=== PATIENT | female | born 1985 ===

== ENCOUNTER 2016-09-17 11:27 | Inpatient (IN) | payer MEDICAID, SELFPAY ==
[2016-09-17 12:40] VITALS: BMI 50.0
[2016-09-17 17:43] LABS: BASO % 0.4 % (0.0-2.0); EOS # 0.1 K/uL (0.0-0.7); EOS % 0.6 % (0.0-4.0); HEMATOCRIT 31.4 % (34.0-47.0); LYMPH # 2.1 K/uL (1.0-4.3); LYMPH % 18.8 % (20.0-40.0); MEAN CELL VOLUME 72.6 fl (81.0-99.0); MEAN CORPUSCULAR HEMOGLOBIN 21.8 pg (27.0-31.0); MEAN PLATELET VOLUME 9.7 fl (7.2-11.7); MONO # 0.6 K/uL (0.0-0.8); MONO % 5.3 % (0.0-10.0); NEUT # 8.4 K/uL (1.8-7.0); NEUT % 74.9 % (50.0-75.0); NRBC % 0.4 % (0.0-0.0); RED CELL DISTRIBUTION WIDTH 19.8 % (11.5-14.5); WHITE BLOOD COUNT 11.2 K/uL (4.8-10.8)
[2016-09-18] MEDS ORDERED: Lactated Ringer's 1,000 ML IV SCH (08:30)
--- NOTE | 2016-09-18 09:46 | OBADHP ---
Datetime: 09/18/2016 08:27 FHR - Baseline A Provider: 140 Vital Signs Provider: Reviewed NICHD Variability Prov Fetus A: Moderate 6-25bpm NICHD Accel Fetus A IP Provider: 15X15 NICHD Decel Fetus A IP Provider: None Dilatation, Provider: 2 Effacement, Provider: 70 Station, Provider: -2 Datetime: 09/17/2016 16:04 IP Chief Complaint Other: decreased ELGIN Admit Comment, IP Provider: 30 y/o F at 39 weeks GA, AP 09/24/16 base on LMP presents to OB ED a fter learning to have decreased ELGIN (5.6) when pt went for growth screening today. Denies VB, C TX or LOF. pt reports + movement. denies dyspnea, chest pain, fever, chills or dizziness. 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 social: denies smoking cigarettes, drinking alcohol or using recreational drugs. allergies: NKDA. assessment: 30 y/o F at 39 weeks GA, AP 09/24/16 base on LMP presents to OB ED after learning to have decreased ELGIN (5.6) today. Plan: admit to unit continue heart monitor cbc type and screen regular diet cervidil to be administer at 20:00 tonight. Sultan Haas, PGY1 Addendum: I saw examined patient up presentation. Patient with amniotic fluid index of 5. Patient transferre d to L_D for induction of labor due to oligohydramnios. I discussed with patient results of ultrasoun d and process of induction. All patient questions answered. Plan for cervical ripening agent today. M aternal well-being and well-being reassuring at this time. [place] Extremities - PN: Normal Abdomen - PN: Normal Back - PN: Normal Lungs - PN: Normal Heart - PN: Normal Neurologic - PN: Normal HEENT - PN: Normal General - PN: Normal Gestation - Est Wks by US: 39.0 IP Hx Assessment: The History has been Reviewed and is Current IP Chief Complaint: Other Genitourinary Exam: Normal DTRs - PN: Normal EGA AdmitDate IP: 39.0 IP Adm Impression: Term, intrauterine IP Admit Plan: Observation/Evaluation
[2016-09-18] MEDS: Lactated Ringer's 1,000 ML IV SCH ×2 (10:00→17:32)
[2016-09-18] MEDS ORDERED: Oxytocin 30 units/LR 500ML 30 U/500 ML BAG IV ONE (10:32)
[2016-09-18] MEDS ORDERED: Morphine 1 mg/ml preservative-free Inj(Duramorph) ONE (11:08)
[2016-09-18] MEDS: Oxytocin 30 units/LR 500ML 30 U/500 ML BAG IV SCH ×2 (11:46→17:32)
[2016-09-18] MEDS ORDERED: Oxycodone/Acetaminophen 5/325 mg Tab PO PRN (12:15)
[2016-09-18] MEDS ORDERED: Lidocaine 2% PF (10 ml) Amp ONE (12:20)
[2016-09-18] MEDS: Simethicone 80 mg Chewtab PO SCH ×2 (16:03→22:49)
[2016-09-18] MEDS: Oxycodone/Acetaminophen 5/325 mg Tab PO PRN (22:49)
--- NOTE | 2016-09-18 23:20 | OP ---
PROCEDURE DATE: 09/18/2016 PREOPERATIVE DIAGNOSIS: Intrauterine at 39 plus weeks, oligohydramnios, primary section via maternal request. POSTOPERATIVE DIAGNOSIS: Intrauterine at 39 plus weeks, oligohydramnios, primary section via maternal request. OPERATION PERFORMED: Primary low flap transverse section by Pfannenstiel skin incision. SURGEON: Dr. Mike Foster. SOCIOLOGY INSTRUCTOR: Dr. Rk Rainey. TYPE OF ANESTHESIA: Epidural. ANESTHESIA ADMINISTERED BY: Dr. Bahena. FINDINGS: The operative findings were baby girl, vertex presentation, Apgars 9 and 9, weighing 3900 grams, 8 pounds 10 ounces. Normal uterus, tubes, and ovaries were identified. Dr. Rainey was the chemistry research assistant. The procedure was instrumental under the care of the patient. He helped deliver the baby, obtain hemostasis and was helpful in closing the patient. The procedure has not been possible without his assistance. IV FLUID INTAKE: The patient received approximately 1200 mL of D5 LR intraoperatively. ESTIMATED BLOOD LOSS: 800 mL. URINE OUTPUT: Guidry catheter put out approximately 150 mL of clear urine. DESCRIPTION OF PROCEDURE: After informed consent was obtained, the patient was taken to the operating room, where she was prepped and draped in a normal sterile fashion with a leftward tilt. A Pfannenstiel skin incision was then made with scalpel and carried down to the underlying layer of fascia. The fascia was nicked in the midline. The fascial incision was then extended laterally with the Curved Devine scissors. The superior aspect of the fascial incision was then grasped with Ju clamps, elevated up, and the rectus muscles were dissected off using both sharp and blunt dissection. Attention was then turned to the inferior aspect of the fascial incision with similar fashion, was grasped with Ju clamps, elevated up, and the rectus muscles were dissected off using both sharp and blunt dissection. The rectus muscles were then in the midline. The peritoneum identified and entered sharply with the Metzenbaum scissors. Peritoneal incision was then extended superiorly and inferiorly with good visualization of the bladder. The bladder blade was then inserted. The vesicouterine peritoneum was identified and entered sharply with the Metzenbaum scissors. The incision was extended laterally and the bladder flap was created digitally. The bladder blade was then readjusted and a low transverse incision was then made with the scalpel. The incision was then distended laterally with the bandage scissors. The 's head was then delivered atraumatically. The nose and mouth were suctioned with DeLee suction trap. The cord was clamped and cut. The was handed out to awaiting pediatricians. The placenta was removed manually. The uterus was exteriorized and cleared of all clots and debris. The uterine incision was then repaired with 0-Vicryl in a running locked fashion. Second layer of the same suture was used to obtain excellent hemostasis. The abdomen was then copiously irrigated. The irrigant was removed with a suction device. The gutters were cleared of all clots and debris. The incision was reexamined, hemostasis was noted. The peritoneum was then closed with 2-0 Vicryl in a running fashion. The muscle was reapproximated with 0-Vicryl in an interrupted fashion. The fascia was closed with 0-Vicryl in a running fashion. The skin was closed with farzad. All sponge, lap, and instruments counts were correct x2, and the patient was taken to the recovery room in awake and stable condition. Mike Foster MD
[2016-09-19 00:32] VITALS: BP 106/67; PULSE 83; RESP 18; TEMP 99.3; O2SAT 95
[2016-09-19] MEDS: Simethicone 80 mg Chewtab PO SCH ×4 (06:22→21:47)
[2016-09-19] MEDS: Oxycodone/Acetaminophen 5/325 mg Tab PO PRN (06:51)
[2016-09-19 07:52] LABS: BASO % 0.2 % (0.0-2.0); EOS % 0.2 % (0.0-4.0); HEMATOCRIT 28.7 % (34.0-47.0); LYMPH # 2.5 K/uL (1.0-4.3); LYMPH % 17.2 % (20.0-40.0); MEAN CELL VOLUME 72.1 fl (81.0-99.0); MEAN CORPUSCULAR HEMOGLOBIN 22.1 pg (27.0-31.0); MEAN CORPUSCULAR HGB CONC 30.6 g/dL (33.0-37.0); MEAN PLATELET VOLUME 9.6 fl (7.2-11.7); MONO # 1.1 K/uL (0.0-0.8); MONO % 7.8 % (0.0-10.0); NEUT # 10.7 K/uL (1.8-7.0); NEUT % 74.6 % (50.0-75.0); NRBC % 0.1 % (0.0-0.0); RED CELL DISTRIBUTION WIDTH 21.2 % (11.5-14.5); WHITE BLOOD COUNT 14.3 K/uL (4.8-10.8)
--- NOTE | 2016-09-19 13:48 | OBPPN ---
Datetime: 09/19/2016 07:29 PP Pain Prov: Within normal limits PP Nausea Prov: Denies PP Flatus Prov: No PP BM Prov: No PP Heart Prov: Normal PP Lungs Prov: Normal PP Abdomen/Uterus Prov: Normal PP Lochia Prov: Normal PP Extremities Prov: Normal PP Progress Prov: Normal PP Impression Prov: Normal progression PP Plan Prov: Continue present management PP Progress Note Prov: This is a 30 y/o now who had a on 09/18/16 due to arrest of di lation. Pt evaluated on bedside. Pt feeling well with uneventful night. Pt tolerating PO, remained a febrile and with lochia less than menses. Pain is tolerable with medications. Pt currently breast and bottle feeding. Pt has NOT try to ambulate yet. Pt denies H/A, CP, SOB, dysuria, passing gasses and bowel movement. O: VS WNL. PE: Gen: A_O, resting comfortable on bed, NAD. Lungs: CTAB, No W/R/R. CV: RRR, S1 and S2 present. ABD: BS +, firm fundus below umbilicus, incision is clean, dry and intact with no erythema, indura trion or edema. EXT: non-tender calves. A_P: 30 y/o F POD 1, S/P . pt feeling well. Will continue post-C section care. Pt encouraged to breast feed and ambulate. Jono Bush PGY-1. OB Hospitalist note: This pt was seen and examined by me. Agree with above note. ELENA MAO PP Procedures: None
[2016-09-19] MEDS: Docusate-Senna 50 mg-8.6 mg Tab PO SCH (21:47)
[2016-09-20] MEDS: Oxycodone/Acetaminophen 5/325 mg Tab PO PRN ×3 (08:24→21:43)
[2016-09-20] MEDS: Simethicone 80 mg Chewtab PO SCH ×3 (09:59→21:40)
--- NOTE | 2016-09-20 10:40 | OBPPN ---
Datetime: 09/20/2016 07:50 PP Pain Prov: Within normal limits PP Nausea Prov: Denies PP Flatus Prov: Yes PP BM Prov: No PP Breasts Prov: Normal PP Heart Prov: Normal PP Lungs Prov: Normal PP Abdomen/Uterus Prov: Normal PP Lochia Prov: Normal PP Vulva/Perineum Prov: Normal PP CVA Tenderness Prov: Normal PP Extremities Prov: Normal PP C/S Incision Prov: Normal PP Progress Prov: Normal PP Comments Phys Exam Prov: not acute distress Lungs CTA B/L RRR, S1S2 Abd: Soft, uterus umb level, not distended. BS+. Incision clean and dry No calf tenderness Alert and oriented PP Impression Prov: Normal progression PP Plan Prov: Continue present management PP Progress Note Prov: S: Patient seen at bedside on POD2 in not acute distress. Denies CP, SOB, randy f pain, palpitations, dizziness, nausea or vomiting. Lochia is less than menses. Pain controlled with pain meds. Tolerating PO diet well. + Flatus no BM yet. Breast and bottle feeding. PE: See above A_P: 30 y/o in POD2 uncomplicated -C/w current plan -Motrin and percocet PRN for pain -Reg diet -Encourage ambulation and -Anticipated DC 09/21/16 Lior Kerr PGY2 The patient was seen with resident I agree with the notes Anticipate discharge in a.m. IP PP Procedures: None Vital Signs Provider PP: Reviewed; Within Normal Limits
[2016-09-20] MEDS: Docusate-Senna 50 mg-8.6 mg Tab PO SCH (21:45)
[2016-09-21] MEDS: Simethicone 80 mg Chewtab PO SCH ×2 (05:02→09:45)
--- NOTE | 2016-09-21 12:58 | OBDCSUM ---
Datetime: 09/21/2016 07:30 Discharged to, Provider: Home Follow up at, Provider: [facility] Disch Instr Activity: May be up to bathroom; May be up for meals; May Shower Disch Instr Diet: Regular Discharge Instructions, Provider: Specific instructions as noted Discharge Diagnosis, Provider: Term Delivered Discharge Time: 09/21/2016 10:55 Follow up in weeks, Provider: 1 WEEK-10days Discharge Instruct Comment, Prov: postop Contraception discussed, Prov: Yes Disch Activity Restrictions: No exercising; No lifting; No driving; No sexual activity; Nothing in v agina - Silt, tampons, douche Discharge Comment, Provider: Encourage Ibuprofen 600 mg 1 tablet every 6 hours as neded for moderate pain Percocet 5/325mg 1 tab every 6 hours as needed if severe pain feosol 325 mg two times daily Senokot S 50/8.6 two time daily Follow up at your clinic in 1 week. Contraception after Delivery: Undecided
--- NOTE | 2016-09-21 13:01 | OBPPN ---
Datetime: 09/21/2016 07:11 PP Pain Prov: Within normal limits PP Nausea Prov: Denies PP Flatus Prov: Yes PP BM Prov: No PP Breasts Prov: Normal PP Heart Prov: Normal PP Lungs Prov: Normal PP Abdomen/Uterus Prov: Normal PP Vulva/Perineum Prov: Normal PP CVA Tenderness Prov: Normal PP Extremities Prov: Normal PP C/S Incision Prov: Normal PP Comments Phys Exam Prov: not acute distress Lungs CTA B/L RRR, S1S2 Abd: Soft, uterus umb level, not distended. BS+. Incision clean and dry, farzad intact. No calf tenderness Alert and oriented PP Impression Prov: Normal progression PP Plan Prov: Discharge PP Progress Note Prov: 30 yo now seen at bedside on POD3 in not acute distress. Denies CP, SOB, calf pain, palpitations, dizziness, nausea or vomiting. Lochia is less than menses. Pain controlled with pain meds. Tolerating PO diet well. Pt reports + Flatus no BM yet. Breast and bottle feeding. PE: See above A_P: 30 y/o in POD3 uncomplicated -Motrin and percocet PRN for pain -Reg diet -Encourage ambulation and -Discharge home today -Follow up in clinic in 1 week. Sultan Haas, PGY-1 [facility] ADDENDUM: pt seen _ examined by me. agree with above assessment and plan. - benefits of reinforced. -wound hygiene reinforced -Fe supplem reviewed. IP PP Procedures: None Vital Signs Provider PP: Reviewed
--- NOTE | 2016-09-30 13:41 | OBDS ---
DELIVERY PERSONNEL Delivery Doctor: Renny Foster MD Tree Doctor: Rupal Handley RN Anesthesiologist: Rito Bahena MD MATERNAL INFORMATION Delivery Anesthesia: Spinal Medications in Delivery: pitocin 30 units in 500 ml lr Estimated Blood Loss (ml): 800 Placenta Cultured: No Maternal Complications: None Provider Comments: see operative report LABOR SUMMARY EDC: 09/24/2016 00:00 No. Babies in Womb: 1 Attempted: No Labor Anesthesia: None LABOR INFORMATION Reason for Induction: Oligohydramnios Cervical Ripening Agents: Cervidil Oxytocin: N/A Group B Beta Strep: Negative Steroids Given: None Reason Steroids Not Administered: Not Applicable MEMBRANES Membranes Rupture Method: Artificial Rupture of Membranes: 09/18/2016 11:44 Length of Rupture (hrs): 0.02 Amniotic Fluid Color: Clear Amniotic Fluid Amount: Moderate Amniotic Fluid Odor: Normal STAGES OF LABOR Stage 3 hrs: 0 Stage 3 min: 0 CSECTION DELIVERY Primary Indication: Other Other Primary Indication: Elective CSection Urgency: Elective CSection Incidence: Primary Labor: No Labor Elective: Elective CSection Incision: Lower Uterine Transverse BABY A INFORMATION Infant Delivery Date/Time: 09/18/2016 11:45 Method of Delivery: Born in Route : No : N/A Forceps: N/A Vacuum Extraction: N/A Shoulder Dystocia : No SHOULDER DYSTOCIA BABY A Infant Delivery Date/Time: 09/18/2016 11:45 PRESENTATION/POSITION BABY A Presentation: Cephalic Cephalic Presentation: Vertex Vertex Position: Left Occipital Posterior Breech Presentation: N/A PLACENTA INFORMATION BABY A Placenta Delivery Time : 09/18/2016 11:45 Placenta Method of Delivery: Manual Removal Placenta Status: Delivered SCORES BABY A Heart Rate 1 min: >100 bpm Resp Effort 1 min: Good Cry Reflex Irritability 1 min: Cough or Sneeze or Pulls Away Muscle Tone 1 min: Active Motion Color 1 min: Body [place], Extremities Blue SCORE 1 MIN: 9 Heart Rate 5 min: >100 bpm Resp Effort 5 min: Good Cry Reflex Irritability 5 min: Cough or Sneeze or Pulls Away Muscle Tone 5 min: Active Motion Color 5 min: Body [place], Extremities Blue SCORE 5 MIN: 9 INFORMATION BABY A Gestational Age at Delivery: 39.0 Gestational Status: Term Infant Outcome : Liveborn Infant Condition : Stable Infant Sex: Female WEIGHT/LENGTH BABY A Birthweight (gms): 3900 Weight (lb): 8 Infant Weight (oz): 10 CORD INFORMATION BABY A No. Cord Vessels: 3 Nuchal Cord : Around Neck x1, Loose Cord Blood Taken: Yes Infant Suction: Mouth; Nose ASSESSMENT BABY A Infant Complications: None Physical Findings at Delivery: Within Normal Limits Infant Respirations: Appears Normal Construction Driller/ALS Called : No Infant Care By: Dr Lalo thompson Transferred To: [facility]
--- NOTE | 2016-10-24 08:10 | OBHP ---
Datetime: 09/18/2016 08:27 FHR - Baseline A Provider: 140 Vital Signs Provider: Reviewed NICHD Variability Prov Fetus A: Moderate 6-25bpm NICHD Accel Fetus A IP Provider: 15X15 NICHD Decel Fetus A IP Provider: None Dilatation, Provider: 2 Effacement, Provider: 70 Station, Provider: -2 Datetime: 09/17/2016 16:04 IP Adm Impression: Term, intrauterine IP Chief Complaint Other: decreased ELGIN IP Admit Plan: Observation/Evaluation Admit Comment, IP Provider: 30 y/o F at 39 weeks GA, AP 09/24/16 base on LMP presents to OB ED a fter learning to have decreased ELGIN (5.6) when pt went for growth screening today. Denies VB, C TX or LOF. pt reports + movement. denies dyspnea, chest pain, fever, chills or dizziness. 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 social: denies smoking cigarettes, drinking alcohol or using recreational drugs. allergies: NKDA. assessment: 30 y/o F at 39 weeks GA, AP 09/24/16 base on LMP presents to OB ED after learning to have decreased ELGIN (5.6) today. Plan: admit to unit continue heart monitor cbc type and screen regular diet cervidil to be administer at 20:00 tonight. Sultan Haas, PGY1 Addendum: I saw examined patient up presentation. Patient with amniotic fluid index of 5. Patient transferre d to L_D for induction of labor due to oligohydramnios. I discussed with patient results of ultrasoun d and process of induction. All patient questions answered. Plan for cervical ripening agent today. M aternal well-being and well-being reassuring at this time. [place] Extremities - PN: Normal Abdomen - PN: Normal Back - PN: Normal Lungs - PN: Normal Heart - PN: Normal Neurologic - PN: Normal HEENT - PN: Normal General - PN: Normal Gestation - Est Wks by US: 39.0 IP Hx Assessment: The History has been Reviewed and is Current EGA AdmitDate IP: 39.0 IP Chief Complaint: Other Genitourinary Exam: Normal DTRs - PN: Normal
== END 2016-09-21 10:55 | disposition home or self-care (01) | DRG 765 ==
LOC: H.EROB2 11:27 → H.L&D 11:28 → H.NURSERY 16:23 → H.EROB2 16:34 → H.L&D 18:15 → H.OB/GYN 09-18 14:30
PROVIDERS: ADMIT Obstetrics & Gynecology; ATTEND Obstetrics & Gynecology
PROC: 4A1HXCZ Monitoring of Products of Conception, Cardiac Rate, External Approach (ICD-10-PCS; 2016-09-17)
PROC: 10D00Z1 Extraction of Products of Conception, Low, Open Approach (ICD-10-PCS; principal; 2016-09-18)
DX: O41.03X0 Oligohydramnios, third trimester, not applicable or unspecified (principal); Z68.43 Body mass index [BMI] 50.0-59.9, adult; O62.1 Secondary uterine inertia; O99.213 Obesity complicating pregnancy, third trimester; E66.01 Morbid (severe) obesity due to excess calories; Z37.0 Single live birth; Z3A.39 39 weeks gestation of pregnancy

== ENCOUNTER 2017-05-05 14:16 | Emergency (ER) | payer OTHER, SELFPAY ==
[2017-05-05 14:16] VITALS: BMI 50.0
[2017-05-05 14:29] VITALS: BP 151/84; PULSE 112; RESP 16; TEMP 98.7; O2SAT 97
--- NOTE | 2017-05-05 15:46 | ED PDOC ---
HPI: General Adult Time Seen by Provider: 05/05/17 14:37 Chief Complaint (Nursing): Weakness/Neurological Deficit Chief Complaint (Provider): Right sided facial numbness History Per: Patient History/Exam Limitations: no limitations Onset/Duration Of Symptoms: Days (3) Have you had recent travel within the past 21 days to any of the following countries: [place], [place], [place] or [place]?: No Current Symptoms Are (Timing): Still Present Additional Complaint(s): 31yo female, otherwise well, presents to ED with right sided facial numbness, lip and tongue numbness for the past 3 days. She also reports an associated frontal headache but denies any fever, chills, visual changes. She also denies any extremity numbness or weakness. She has no other complaints. Past Medical History Reviewed: Historical Data, Nursing Documentation, Vital Signs Vital Signs: Last Vital Signs Temp 98.7 F 05/05/17 14:26 Pulse 112 H 05/05/17 14:26 Resp 16 05/05/17 14:26 BP 151/84 H 05/05/17 14:26 Pulse Ox 97 05/05/17 17:58 - Medical History PMH: No Chronic Diseases - Surgical History Surgical History: No Surg Hx - Family History Family History: States: No Known Family Hx - Home Medications Home Medications: Ambulatory Orders Medication Instructions Recorded Vit Calc,Iron,Folic 1 tab PO DAILY 09/18/16 [ Vitamins] Docusate Sodium/Sennosides A 1 tab PO BID #60 tab 09/21/16 [Senokot S 50 MG-8.6 MG] Ferrous Sulfate [Feosol] 325 mg PO BID #60 tab 09/21/16 Ibuprofen [Motrin Tab] 600 mg PO Q6 PRN #30 tab 09/21/16 oxyCODONE/Acetaminophen [Percocet 1 tab PO Q6 PRN #20 tab 09/21/16 5/325 mg Tab] predniSONE [predniSONE Tab] 25 mg PO BID #95 tab 05/05/17 - Allergies Allergies/Adverse Reactions: Allergies Allergy/AdvReac Type Severity Reaction Status Date / Time No Known Allergies Allergy Verified 09/17/16 13:47 Review of Systems ROS Statement: Except As Marked, All Systems Reviewed And Found Negative Constitutional: Negative for: Fever, Chills Eyes: Negative for: Vision Change Neurological: Positive for: Numbness (right sided facial numbness including lip and tongue), Headache. Negative for: Weakness Physical Exam - Reviewed Nursing Documentation Reviewed: Yes Vital Signs Reviewed: Yes - Physical Exam Appears: Positive for: Well, Non-toxic, No Acute Distress Head Exam: Positive for: ATRAUMATIC, NORMAL INSPECTION, NORMOCEPHALIC Skin: Positive for: Normal Color, Warm, Dry. Negative for: Rash Eye Exam: Positive for: Normal appearance, PERRL ENT: Positive for: TM Is/Are (WNL, no lesions, ear canal clear) Neck: Positive for: Supple Cardiovascular/Chest: Positive for: Regular Rate, Rhythm Respiratory: Positive for: Normal Breath Sounds. Negative for: Respiratory Distress Extremity: Positive for: Normal ROM Neurologic/Psych: Positive for: Alert, Oriented, Mood/Affect (normal), Gait ( steady), Facial Droop (right sided facial droop affecting forehead). Negative for: Motor/Sensory Deficits, Aphasia - ECG O2 Sat by Pulse Oximetry: 97 (RA) Pulse Ox Interpretation: Normal Medical Decision Making Medical Decision Making: Impression: [place] palsy Plan: -- CT Head -- Upreg Accession No. 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 HISTORY: CABRERA, R Diane's palsy COMPARISON: None available. TECHNIQUE: Axial computed tomography images were obtained through the head/brain without intravenous contrast. Radiation dose: Total exam DLP = 788.56 mGy-cm. This CT exam was performed using one or more of the following dose reduction techniques: Automated exposure control, adjustment of the mA and/or kV according to patient size, and/or use of iterative reconstruction technique. FINDINGS: HEMORRHAGE: No acute parenchymal, subarachnoid or extra-axial hemorrhage. Hemorrhage. BRAIN: No evidence of large acute infarct however note that the possibility of a small hyperacute infarct cannot be excluded on this exam and if there is any concern, followup MRI with diffusion imaging recommended for further evaluation, the urgency of which should be based on clinical correlation and whether patient is in a treatment window for or tPA therapy VENTRICLES: No obstructive hydrocephalus. CALVARIUM: Calvarium intact. PARANASAL SINUSES: Unremarkable as visualized. No significant inflammatory changes. MASTOID AIR CELLS: Unremarkable as visualized. No inflammatory changes. OTHER FINDINGS: Visualized orbits and contents unremarkable. IMPRESSION: No acute intracranial hemorrhage. Note that the possibility of a small hyperacute infarct cannot be excluded if there is any concern, followup MRI recommended as detailed above. Scribe Attestation: Documented by Stefani Mcqueen acting as a scribe for Vikki Stewart MD. Provider Attestation: All medical record entries made by the Scribe were at my direction and personally dictated by me. I have reviewed the chart and agree that the record accurately reflects my personal performance of the history, physical exam, medical decision making, and the department course for this patient. I have also personally directed, reviewed, and agree with the discharge instructions and disposition. Disposition - Clinical Impression Clinical Impression: Diane's palsy - Disposition Referrals: [facility] [Outside] [facility] [Outside] Disposition: Routine/Home Disposition Time: 17:57 Condition: STABLE Additional Instructions: SALINE EYE DROPS Prescriptions: predniSONE [predniSONE Tab] 25 mg PO BID #95 tab Instructions: Diane's Palsy Forms: [employer] (English) Print Language: DANISH
--- NOTE | 2017-05-05 17:29 | CT ---
PROCEDURE: CT HEAD WITHOUT CONTRAST. HISTORY: CABRERA, R Diane's palsy COMPARISON: None available. TECHNIQUE: Axial computed tomography images were obtained through the head/brain without intravenous contrast. Radiation dose: Total exam DLP = 788.56 mGy-cm. This CT exam was performed using one or more of the following dose reduction techniques: Automated exposure control, adjustment of the mA and/or kV according to patient size, and/or use of iterative reconstruction technique. FINDINGS: HEMORRHAGE: No acute parenchymal, subarachnoid or extra-axial hemorrhage. Hemorrhage. BRAIN: No evidence of large acute infarct however note that the possibility of a small hyperacute infarct cannot be excluded on this exam and if there is any concern, followup MRI with diffusion imaging recommended for further evaluation, the urgency of which should be based on clinical correlation and whether patient is in a treatment window for or tPA therapy VENTRICLES: No obstructive hydrocephalus. CALVARIUM: Calvarium intact. PARANASAL SINUSES: Unremarkable as visualized. No significant inflammatory changes. MASTOID AIR CELLS: Unremarkable as visualized. No inflammatory changes. OTHER FINDINGS: Visualized orbits and contents unremarkable. IMPRESSION: No acute intracranial hemorrhage. Note that the possibility of a small hyperacute infarct cannot be excluded if there is any concern, followup MRI recommended as detailed above.
[2017-05-05] MEDS ORDERED: PrednisoLONE 15 mg/5 ml Oral Syrup (240 ml) PO STA (17:36)
== END 2017-05-05 18:06 | disposition home or self-care (01) ==
LOC: H.ER 14:16
DX: G51.0 Bell's palsy (principal)